=== PATIENT | female | born 1975 | race Caucasian/White ===

== ENCOUNTER 2018-05-17 10:10 | Emergency (ER) | payer SELFPAY ==
[~2018-05-17] VITALS: Ht 154.9 cm; Wt 74.0 kg
[~2018-05-17 10:10] MED LIST: LOPE2 PO; Z.0.NO CURRENT MEDS
[2018-05-17 10:19] VITALS: BP 149/72; PULSE 80; RESP 16; TEMP 98.1; O2SAT 99
[2018-05-17 11:09] LABS: BILIRUBIN, URINE NEG (NEG); BLOOD, URINE SMALL (NEG); GLUCOSE,URINE NEG (NEG); KETONE, URINE NEG (NEG); MUCUS URINE FEW /lpf (OCC); NITRITE,URINE NEG (NEG); SQUAMOUS EPITHELIAL CELL URINE 2 /hpf (0-5); URINE COLOR YELLOW (YELLW/STRAW); URINE LEUKOCYTE ESTERASE NEG (NEG)
[2018-05-17 12:42] LABS: AUTOMATED NEUTROPHIL # 5.9 TH/MM3 (1.8-7.7); BASOPHIL # 0.1 TH/MM3 (0-0.2); BASOPHIL % 1.2 % (0.0-2.0); EOSINOPHIL # 0.1 TH/MM3 (0-0.4); EOSINOPHIL % 1.6 % (0.0-4.0); HEMATOCRIT 35.4 % (35.0-46.0); LYMPH % 19.5 % (9.0-44.0); LYMPHOCYTE # 1.6 TH/MM3 (1.0-4.8); MEAN CELL VOLUME 73.3 FL (80.0-100.0); MEAN CORPUSCULAR HEMOGLOBIN 22.8 PG (27.0-34.0); MEAN CORPUSCULAR HGB CONC 31.1 % (32.0-36.0); MEAN PLATELET VOLUME 8.6 FL (7.0-11.0); MONO % 5.6 % (0.0-8.0); MONOCYTE # 0.5 TH/MM3 (0-0.9); NEUT % 72.1 % (16.0-70.0); PLATELET COUNT 367 TH/MM3 (150-450); RED BLOOD COUNT 4.84 MIL/MM3 (4.00-5.30); RED CELL DISTRIBUTION WIDTH 17.2 % (11.6-17.2); WHITE BLOOD COUNT 8.2 TH/MM3 (4.0-11.0)
[2018-05-17 12:57] LABS: ALBUMIN 3.7 GM/DL (3.4-5.0); AST (GOT) 37 U/L (15-37); BICARBONATE 25.8 MEQ/L (21.0-32.0); BLOOD UREA NITROGEN 9 MG/DL (7-18); CALCIUM 8.8 MG/DL (8.5-10.1); CHLORIDE 105 MEQ/L (98-107); CREATININE 0.59 MG/DL (0.50-1.00); GLOMERULAR FILTRATION RATE 112 ML/MIN (>89); GLUCOSE,RANDOM 100 MG/DL (74-106); SODIUM (NA) 138 MEQ/L (136-145)
[2018-05-17 13:01] LABS: ALKALINE PHOSPHATASE 100 U/L (45-117); ALT (GPT) 57 U/L (10-53); TOTAL BILIRUBIN ADULT 0.6 MG/DL (0.2-1.0); TOTAL PROTEIN 7.7 GM/DL (6.4-8.2)
[2018-05-17 13:28] VITALS: BP 122/59; PULSE 62; RESP 17; O2SAT 100
[2018-05-17] MEDS ORDERED: IOHEXOL 350 MG/ML 10 ML VIAL (for RAD DIAG) IVCONTRAST ONE (14:07)
--- NOTE | 2018-05-17 14:11 | PD ---
HPI Chief Complaint: Intermodal Dispatcher Problem/Complaint Time Seen by Provider: 11:52 Travel History International Travel<30 days: No Contact w/Intl Traveler<30days: No Traveled to known affect area: No History of Present Illness HPI 43-year-old female that presents to the ED for evaluation of abdominal pain on and off for the past 3 months as well as lesions to her vaginal area. Per patient she has not seen anybody for this. Per patient she is been having the pain on and off for the past couple of months but today become more significant. Per patient the pain is in the right side of the abdomen. As well as the left upper abdomen. Currently is more in the right upper quadrant. She still has her gallbladder. She has a history of surgery to her abdomen for a she believes that she had her tubes tied. She does not know for sure. Per patient this was 16 years ago. She states that she does she was but she did not have any nausea or vomiting. She states that the belly pain is what brought her here. She also reports that she has had a rash on her groin area that comes and goes and is itchy. Per patient she believes is related to the longer that she does at her place of work. Per patient is only to the groin. Per patient is itchy and pruritic. Comes and goes and gets better and worse. Currently states that is not as severe as he used to be but she does have bumps per patient and her groin area. Denies any vaginal discharge or bleeding to me. Denies any other medical issues. Per patient her pain currently is 4 out of 10 but worse with touch. PFSH Past Medical History ?: Not : 3 Para: 3 Past Surgical History Section: Yes Social History Alcohol Use: No Tobacco Use: No Substance Use: No Allergies-Medications (Allergen,Severity, Reaction): Coded Allergies: penicillin G (Unverified Allergy, Severe, 05/17/18) Reported Meds & Prescriptions Reported Meds & Active Scripts Active Diclofenac Sodium DR (Diclofenac Sodium) 75 Mg Tabdr 75 Mg PO BID PRN Miconazole Topical 2% Cream 1 Applic TOPICAL BID 14 Days Flagyl (Metronidazole) 500 Mg Tab 500 Mg PO BID 7 Days Review of Systems Except as stated in HPI: all other systems reviewed are Neg Physical Exam Narrative GENERAL: SKIN: Warm and dry. Groin area seen with female nurse present. Patient has what appears to be slightly pruritic rash on her folds of her skin. This appeared to be slightly darker than her skin with some whitish discoloration. Pruritic and not painful. No lymphadenopathy noted. HEAD: Atraumatic. Normocephalic. EYES: Pupils equal and round. No scleral icterus. No injection or drainage. ENT: No nasal bleeding or discharge. Mucous membranes pink and moist. Tongue is midline. No uvula deviation. NECK: Trachea midline. No JVD. CARDIOVASCULAR: Regular rate and rhythm. RESPIRATORY: No accessory muscle use. Clear to auscultation. Breath sounds equal bilaterally. GASTROINTESTINAL: Abdomen soft, tender to palpation in the right upper quadrant , nondistended. Hepatic and splenic margins not palpable. MUSCULOSKELETAL: Extremities without clubbing, cyanosis, or edema. No obvious deformities. Full range of motion of the upper and lower extremities bilaterally. 2+ pulses bilaterally. NEUROLOGICAL: Awake and alert. No obvious cranial nerve deficits. Motor grossly within normal limits. Five out of 5 muscle strength in the arms and legs. Normal speech. PSYCHIATRIC: Appropriate mood and affect; insight and judgment normal. Data Data Last Documented VS Vital Signs Date Time Temp Pulse Resp B/P (MAP) Pulse Ox O2 Delivery O2 Flow Rate FiO2 05/17/18 13:28 62 17 122/59 (80) 100 Room Air 05/17/18 10:19 98.1 Orders Orders Urinalysis - C+S If Indicated (05/17/18 10:23) Ed Urine Pregnancytest Poc (05/17/18 10:23) Complete Blood Count With Diff (05/17/18 11:41) Comprehensive Metabolic Panel (05/17/18 11:41) Lipase (05/17/18 11:41) Lactic Acid (05/17/18 11:41) Iv Access Insert/Monitor (05/17/18 11:41) Ct Abd/Pel W Iv Contrast(Rout) (05/17/18 ) Iohexol 350 Inj (Omnipaque 350 Inj) (05/17/18 14:07) Wet Prep Profile (05/17/18 14:43) Gc And Chlamydia Pcr (05/17/18 14:59) Ed Discharge Order (05/17/18 15:41) Labs Laboratory Tests Test 05/17/18 10:27 05/17/18 12:30 05/17/18 15:18 Urine Color YELLOW Urine Turbidity CLEAR Urine pH 5.0 Urine Specific [place] 1.021 Urine Protein NEG mg/dL Urine Glucose (UA) NEG mg/dL Urine Ketones NEG mg/dL Urine Occult Blood SMALL Urine Nitrite NEG Urine Bilirubin NEG Urine Urobilinogen LESS THAN 2 mg/dL Urine Leukocyte Esterase NEG Urine RBC 1 /hpf Urine WBC LESS THAN 1 /hpf Urine Squamous Epithelial Cells 2 /hpf Urine Mucus FEW /lpf Microscopic Urinalysis Comment CULT NOT INDICATED White Blood Count 8.2 TH/MM3 Red Blood Count 4.84 MIL/MM3 Hemoglobin 11.0 GM/DL Hematocrit 35.4 % Mean Corpuscular Volume 73.3 FL Mean Corpuscular Hemoglobin 22.8 PG Mean Corpuscular Hemoglobin Concent 31.1 % Red Cell Distribution Width 17.2 % Platelet Count 367 TH/MM3 Mean Platelet Volume 8.6 FL Neutrophils (%) (Auto) 72.1 % Lymphocytes (%) (Auto) 19.5 % Monocytes (%) (Auto) 5.6 % Eosinophils (%) (Auto) 1.6 % Basophils (%) (Auto) 1.2 % Neutrophils # (Auto) 5.9 TH/MM3 Lymphocytes # (Auto) 1.6 TH/MM3 Monocytes # (Auto) 0.5 TH/MM3 Eosinophils # (Auto) 0.1 TH/MM3 Basophils # (Auto) 0.1 TH/MM3 CBC Comment DIFF FINAL Differential Comment Blood Urea Nitrogen 9 MG/DL Creatinine 0.59 MG/DL Random Glucose 100 MG/DL Total Protein 7.7 GM/DL Albumin 3.7 GM/DL Calcium Level 8.8 MG/DL Alkaline Phosphatase 100 U/L Aspartate Amino Transf (AST/SGOT) 37 U/L Alanine Aminotransferase (ALT/SGPT) 57 U/L Total Bilirubin 0.6 MG/DL Sodium Level 138 MEQ/L Potassium Level 3.8 MEQ/L Chloride Level 105 MEQ/L Carbon Dioxide Level 25.8 MEQ/L Anion Gap 7 MEQ/L Estimat Glomerular Filtration Rate 112 ML/MIN Lactic Acid Level 1.1 mmol/L Lipase 92 U/L Clue Cells (Wet Prep) PRESENT Vaginal Trichomonas (Wet Prep) NONE SEEN Vaginal Yeast (Wet Prep) NONE SEEN MDM Medical Decision Making Medical Screen Exam Complete: Yes Emergency Medical Condition: Yes Medical Record Reviewed: Yes Interpretation(s) CBC & BMP Diagram 05/17/18 12:30 Total Protein 7.7, Albumin 3.7, Calcium Level 8.8, Alkaline Phosphatase 100, Aspartate Amino Transf (AST/SGOT) 37, Alanine Aminotransferase (ALT/SGPT) 57 H, Total Bilirubin 0.6 UA negative lipase WNL wet prep positive for clue cells Last Impressions Abdomen/Pelvis CT 05/17/18 0000 Signed Impressions: CONCLUSION: 1. 3.0 x 3.6 cm right ovarian cyst. 2. No definite abnormality to explain the patient's left lower quadrant pain i s identified. Differential Diagnosis Tinea infection versus acute abdomen versus cholecystitis versus abdominal pain versus chronic abdominal pain versus hepatitis versus pancreatitis versus normal exam Narrative Course 43-year-old female that presents to the ED for evaluation of rash to her groin and abdominal pain. Patient was properly examined and was found to have signs and symptoms of unclear etiology. She has no primary care doctor and can follow -up outpatient. This time we will do CT as patient does have some reversible pain on the right upper quadrant. We will do blood work. Groin rash appears to be likely tinea pubis. Will treat this with miconazole topical prescription. On regards to the abdominal pain labs and imaging showed negative for acute disease. My attending recommends doing a pelvic exam was the patient has a vaginal discharge she is having abdominal pain. My attending Dr. Locke herself evaluated the patient and performed the pelvic exam herself. please refer to her note. Per her report white discharge noted. Wet prep was sent and did show what appears to be positive for clue cells. Patient likely having bacterial vaginosis. Possible symptoms related to this. Will treat with Flagyl, diclofenac sodium for pain, miconazole topical for the rash. Told to follow closely with PCP. See ED if worsening symptoms. Follow up with PCP. Diagnosis Primary Impression: BV (bacterial vaginosis) Additional Impressions: Ovarian cyst Qualified Codes: N83.201 - Unspecified ovarian cyst, right side Tinea Referrals: [facility] Patient Instructions: General Instructions Additional Instructions: Take medications as prescribed. Follow-up with PCP. No intercourse for 2 weeks until symptoms resolve, especially abdominal pain. See ED if worsening symptoms. Med/Other Pt SpecificInfo: Prescription(s) given Scripts Diclofenac Sodium DR (Diclofenac Sodium DR) 75 Mg Tabdr 75 MG PO BID Y for PAIN SCALE 1 TO 10, #20 TAB 0 Refills Prov: Lakesha Locke MD 05/17/18 Miconazole Topical (Miconazole Topical) 2% Cream 1 APPLIC TOPICAL BID for 14 Days, GM 0 Refills Prov: Lakesha Locke MD 05/17/18 Metronidazole (Flagyl) 500 Mg Tab 500 MG PO BID for Infection for 7 Days, #14 TAB 0 Refills Prov: Laeksha Locke MD 05/17/18 Disposition: 01 DISCHARGE HOME Condition: Stable Ron Goldberg May 17, 2018 14:11
--- NOTE | 2018-05-17 14:31 | RADRPT ---
EXAM DATE: 05/17/2018 2:14 PM EDT AGE/SEX: 43 years / Female INDICATIONS: Left lower quadrant pain for 3 months CLINICAL DATA: This is the patient's initial encounter. Patient reports that signs and symptoms have been present for 1 day and indicates a pain score of 7/10. MEDICAL/SURGICAL HISTORY: None. None. ORAL CONTRAST: No oral contrast ingested. RADIATION DOSE: 8.12 CTDI (mGy) COMPARISON: No prior exams available for comparison. TECHNIQUE: Multiple contiguous axial images were obtained through the abdomen and pelvis following b olus infusion of 93 ml Omnipaque 350 (iohexol) nonionic water-soluble contrast as a single exam dos e. No oral contrast ingested. Using automated exposure control and adjustment of the mA and/or kV ac cording to patient size, radiation dose was kept as low as reasonably achievable to obtain optimal di agnostic quality images. DICOM format image data is available electronically for review and comparis on. FINDINGS: The visualized portion of lung bases clear. The appearance of the liver, spleen, pancreas, adrenal glands and kidneys is within normal limits. The abdominal aorta is normal in caliber. Incidental note is made of a retroaortic left renal vein. N o retroperitoneal adenopathy is seen. The loops of small and large bowel within the upper abdomen are unremarkable. No free air or free flu id is identified. There is no free fluid within the pelvis. No iliac or inguinal adenopathy is present. The examination does demonstrate a 3.0 x 3.6 cm right ovarian cyst. The visualized bony structures demonstrate degenerative changes but are otherwise intact. CONCLUSION: 1. 3.0 x 3.6 cm right ovarian cyst. 2. No definite abnormality to explain the patient's left lower quadrant pain is identified. Electronically signed by: Chase Durbin MD 05/17/2018 2:29 PM EDT
[2018-05-17] MEDS ORDERED: DICL75TA PO (15:40)
[2018-05-17] MEDS ORDERED: METR-1 PO (15:40)
[2018-05-17] MEDS ORDERED: MICO2CRE34 TOPICAL (15:40)
--- NOTE | 2018-05-18 17:21 | PD ---
Physical Exam Narrative Please see mid level note for full history, physical, and disposition. 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 I did the pelvic exam: No vaginal or cervical lesions noted, no adnexa or cervical motion tenderness, + milky white d /c noted Data Data Last Documented VS Vital Signs Date Time Temp Pulse Resp B/P (MAP) Pulse Ox O2 Delivery O2 Flow Rate FiO2 05/17/18 16:37 05/17/18 13:28 62 17 100 Room Air 05/17/18 10:19 98.1 Orders Orders Urinalysis - C+S If Indicated (05/17/18 10:23) Ed Urine Pregnancytest Poc (05/17/18 10:23) Complete Blood Count With Diff (05/17/18 11:41) Comprehensive Metabolic Panel (05/17/18 11:41) Lipase (05/17/18 11:41) Lactic Acid (05/17/18 11:41) Iv Access Insert/Monitor (05/17/18 11:41) Ct Abd/Pel W Iv Contrast(Rout) (05/17/18 ) Iohexol 350 Inj (Omnipaque 350 Inj) (05/17/18 14:07) Wet Prep Profile (05/17/18 14:43) Gc And Chlamydia Pcr (05/17/18 14:59) Ed Discharge Order (05/17/18 15:41) Labs Laboratory Tests Test 05/17/18 10:27 05/17/18 12:30 05/17/18 15:18 Urine Color YELLOW Urine Turbidity CLEAR Urine pH 5.0 Urine Specific [place] 1.021 Urine Protein NEG mg/dL Urine Glucose (UA) NEG mg/dL Urine Ketones NEG mg/dL Urine Occult Blood SMALL Urine Nitrite NEG Urine Bilirubin NEG Urine Urobilinogen LESS THAN 2 mg/dL Urine Leukocyte Esterase NEG Urine RBC 1 /hpf Urine WBC LESS THAN 1 /hpf Urine Squamous Epithelial Cells 2 /hpf Urine Mucus FEW /lpf Microscopic Urinalysis Comment CULT NOT INDICATED White Blood Count 8.2 TH/MM3 Red Blood Count 4.84 MIL/MM3 Hemoglobin 11.0 GM/DL Hematocrit 35.4 % Mean Corpuscular Volume 73.3 FL Mean Corpuscular Hemoglobin 22.8 PG Mean Corpuscular Hemoglobin Concent 31.1 % Red Cell Distribution Width 17.2 % Platelet Count 367 TH/MM3 Mean Platelet Volume 8.6 FL Neutrophils (%) (Auto) 72.1 % Lymphocytes (%) (Auto) 19.5 % Monocytes (%) (Auto) 5.6 % Eosinophils (%) (Auto) 1.6 % Basophils (%) (Auto) 1.2 % Neutrophils # (Auto) 5.9 TH/MM3 Lymphocytes # (Auto) 1.6 TH/MM3 Monocytes # (Auto) 0.5 TH/MM3 Eosinophils # (Auto) 0.1 TH/MM3 Basophils # (Auto) 0.1 TH/MM3 CBC Comment DIFF FINAL Differential Comment Blood Urea Nitrogen 9 MG/DL Creatinine 0.59 MG/DL Random Glucose 100 MG/DL Total Protein 7.7 GM/DL Albumin 3.7 GM/DL Calcium Level 8.8 MG/DL Alkaline Phosphatase 100 U/L Aspartate Amino Transf (AST/SGOT) 37 U/L Alanine Aminotransferase (ALT/SGPT) 57 U/L Total Bilirubin 0.6 MG/DL Sodium Level 138 MEQ/L Potassium Level 3.8 MEQ/L Chloride Level 105 MEQ/L Carbon Dioxide Level 25.8 MEQ/L Anion Gap 7 MEQ/L Estimat Glomerular Filtration Rate 112 ML/MIN Lactic Acid Level 1.1 mmol/L Lipase 92 U/L Clue Cells (Wet Prep) PRESENT Vaginal Trichomonas (Wet Prep) NONE SEEN Vaginal Yeast (Wet Prep) NONE SEEN Chlamydia trachomatis DNA (PCR) NOT DETECTED Neisseria gonorrhoeae DNA (PCR) NOT DETECTED MDM Supervised Visit with MELIDA: Yes Diagnosis Primary Impression: BV (bacterial vaginosis) Additional Impressions: Ovarian cyst Qualified Codes: N83.201 - Unspecified ovarian cyst, right side Tinea Referrals: [facility] Patient Instructions: General Instructions, Bacterial Vaginosis (ED), Ovarian Cyst (ED) Departure Forms: Tests/Procedures Additional Instruction: Take medications as prescribed. Follow-up with PCP. No intercourse for 2 weeks until symptoms resolve, especially abdominal pain. See ED if worsening symptoms. Scripts Diclofenac Sodium DR (Diclofenac Sodium DR) 75 Mg Tabdr 75 MG PO BID Y for PAIN SCALE 1 TO 10, #20 TAB 0 Refills Prov: Lakesha Locke MD 05/17/18 Miconazole Topical (Miconazole Topical) 2% Cream 1 APPLIC TOPICAL BID for 14 Days, GM 0 Refills Prov: Lakesha Locke MD 05/17/18 Metronidazole (Flagyl) 500 Mg Tab 500 MG PO BID for Infection for 7 Days, #14 TAB 0 Refills Prov: Lakesha Locke MD 05/17/18 Disposition: 01 DISCHARGE HOME Condition: Stable Lakesha Locke MD May 18, 2018 17:21
== END 2018-05-17 16:42 | disposition home or self-care (01) ==
LOC: NEPE 10:10
DX: N76.0 Acute vaginitis (principal); B96.89 Other specified bacterial agents as the cause of diseases classified elsewhere; N83.201 Unspecified ovarian cyst, right side; R21 Rash and other nonspecific skin eruption; Z88.0 Allergy status to penicillin
CPT/HCPCS: 74177; 80053; 81001; 83605; 83690; 84703; 85025; 87210; 87491; 87591; 99285; Q9967

== ENCOUNTER 2018-08-10 14:03 | Observation (INO) ==
[2018-08-10 17:04] LABS: Baso # (Auto) 0.1 th/mm3 (0.0-0.2); Baso % (Auto) 1.7 % (0.0-2.0); Eos # (Auto) 0.1 th/mm3 (0.0-0.4); Eos % (Auto) 0.7 % (0.0-4.0); Lymph # (Auto) 1.8 th/mm3 (1.0-4.8); Lymph % (Auto) 22.4 % (9.0-44.0); Mean Corpuscular Hemoglobin 19.4 pg (27.0-34.0); Mean Corpuscular Volume 64.2 fL (80.0-100.0); Mean Platelet Volume 8.4 fL (7.0-11.0); Mono # (Auto) 0.5 th/mm3 (0.0-0.9); Mono % (Auto) 5.8 % (0.0-8.0); Neut # (Auto) 5.6 th/mm3 (1.8-7.7); Neut % (Auto) 69.4 % (16.0-70.0); Platelet Count 441 th/mm3 (150-450); Red Cell Distribution Width 23.5 % (11.6-17.2)
[2018-08-10 17:11] LABS: Mean Corpuscular HGB Conc 30.2 % (32.0-36.0)
[2018-08-10 17:14] LABS: Hematocrit 19.9 % (35.0-46.0)
[2018-08-10 17:31] LABS: Anion Gap 8 meq/L (5-15); Blood Urea Nitrogen 7 mg/dL (7-18); Calcium 8.8 mg/dL (8.5-10.1); Carbon Dioxide 26.2 meq/L (21.0-32.0); Chloride 105 meq/L (98-107); Glomerular Filtration Rate Greater Than 89 mL/min (>89); Glucose,Random 111 mg/dL (74-106); Potassium 3.7 meq/L (3.5-5.1); Sodium 139 meq/L (136-145)
[2018-08-10] MEDS ORDERED: Sod Chloride 0.9% Inj 1,000 ML IV.SIG ONE (17:41)
--- NOTE | 2018-08-10 17:50 | ED ---
HPI General Chief Complaint: Recheck/Abnormal Lab/Rx Stated Complaint: Abnormal test Time Seen by Provider: 08/10/18 17:30 Source: patient, RN notes reviewed and old records reviewed Mode of arrival: ambulatory Limitations: no limitations History of Present Illness HPI narrative: 43-year-old female presents to the emergency department sent by her primary care physician for low hemoglobin. Patient states she has been feeling fatigued for her primary care physician sent her for labs this morning. Her hemoglobin was low and she was instructed to come the emergency department. Patient reports vaginal bleeding for the past 1.5 months. She denies any rectal bleeding. She denies any syncope. No chest pain or shortness of breath. She has no chronic medical problems and takes no prescribed medications. Moderate severity. She denies any abdominal pain. No nausea, vomiting, diarrhea MD complaint: abnormal lab Returns today for: called because of abnormal lab/test Context: called for abnormal lab result Associated symptoms: malaise Related Data Home Medications Medication Instructions Recorded Confirmed No Known Home Medications 08/10/18 08/10/18 Allergies Allergy/AdvReac Type Severity Reaction Status Date / Time penicillin G Allergy Severe Rash, Verified 08/10/18 17:58 Generalized Review of Systems ROS: all other systems reviewed are negative PMFSH Medical History Medical History Ovarian cyst (Acute) Social History Social History Substance History: No History of Abuse Second Hand Smoke Exposure: No Smoking Status: Never smoker How Often Do You Have a Drink Containing Alcohol: Monthly or less Recent Travel in [facility] within the Last 8 Weeks: No Recent Out of Country Travel within the Last 8 Weeks: No Immunization History Tetanus Immunization: Unsure Exam Narrative Exam Narrative: GENERAL: Well-nourished, well-developed female patient, ambulatory. Afebrile. SKIN: Focused skin assessment warm/dry. HEAD: Normocephalic. Atraumatic. EYES: No scleral icterus. No injection or drainage. NECK: Supple, trachea midline. No JVD or lymphadenopathy. CARDIOVASCULAR: Regular rate and rhythm without murmurs, gallops, or rubs. RESPIRATORY: Breath sounds equal bilaterally. No accessory muscle use. Lung sounds are clear to auscultation. GASTROINTESTINAL: Abdomen soft, non-tender, nondistended. MUSCULOSKELETAL: No cyanosis, or edema. BACK: Nontender without obvious deformity. No CVA tenderness. Course Initial Documented Vital Signs Temperature 97.9 F 08/10/18 15:09 Pulse Rate 87 08/10/18 15:09 Respiratory Rate 15 08/10/18 15:09 Blood Pressure 121/63 08/10/18 15:09 Pulse Oximetry 100 08/10/18 15:09 Last Documented Vital Signs Temperature 98.1 F 08/10/18 21:17 Pulse Rate 88 08/10/18 21:17 Respiratory Rate 18 08/10/18 21:17 Blood Pressure 121/66 08/10/18 21:17 Pulse Oximetry 100 08/10/18 21:17 Medical Decision Making MDM Narrative Medical decision making narrative: 43-year-old female presents to the emergency department for anemia, vaginal bleeding. Patient states that she was told by her primary care physician that she had a low hemoglobin need to go the emergency department. CBC shows hemoglobin 6.0, hematocrit 19.9. BMP shows no acute abnormality. UA is negative. Urine test is negative. Type and screen is ordered. Patient is given normal saline 1 L IV bolus. 2 units PRBCs are ordered and pending. Dr. Briscoe accepted admission. Medical Screen Exam Complete: Yes Emergency Medical Condition: Yes Differential Diagnosis Differential Diagnosis: Anemia versus vaginal bleeding versus UTI Lab Data Result diagrams: 08/10/18 16:32 08/10/18 16:32 POC Results POC Urine Results Negative Lab Results 08/10/18 08/10/18 08/10/18 Range/Units 16:22 16:32 16:32 WBC 8.0 (4.0-11.0) th/mm3 RBC 3.10 L (4.00-5.30) mil/mm3 Hgb 6.0 L* (11.6-15.3) gm/dL Hct 19.9 L* (35.0-46.0) % MCV 64.2 L (80.0-100.0) fL MCH 19.4 L (27.0-34.0) pg MCHC 30.2 L (32.0-36.0) % RDW 23.5 H (11.6-17.2) % Plt Count 441 (150-450) th/mm3 MPV 8.4 (7.0-11.0) fL Neut % (Auto) 69.4 (16.0-70.0) % Lymph % (Auto) 22.4 (9.0-44.0) % [place] % (Auto) 5.8 (0.0-8.0) % Eos % (Auto) 0.7 (0.0-4.0) % Baso % (Auto) 1.7 (0.0-2.0) % Neut # (Auto) 5.6 (1.8-7.7) th/mm3 Lymph # (Auto) 1.8 (1.0-4.8) th/mm3 [place] # (Auto) 0.5 (0.0-0.9) th/mm3 Eos # (Auto) 0.1 (0.0-0.4) th/mm3 Baso # (Auto) 0.1 (0.0-0.2) th/mm3 WBC Differential . Differential Comment Auto diff final Sodium 139 (136-145) meq/L Potassium 3.7 (3.5-5.1) meq/L Chloride 105 (98-107) meq/L Carbon Dioxide 26.2 (21.0-32.0) meq/L Anion Gap 8 (5-15) meq/L BUN 7 (7-18) mg/dL Creatinine 0.71 (0.50-1.00) mg/dL Estimated GFR Greater than 89 (>89) mL/min Random Glucose 111 H (74-106) mg/dL Calcium 8.8 (8.5-10.1) mg/dL Urine Color (Yellw/Straw) Urine Clarity (Clear) Urine pH (5.0-8.5) Ur Specific [place] (1.002-1.035) Urine Protein (Neg-Trace) mg/dL Urine Glucose (UA) (Negative) mg/dL Urine Ketones (Negative) mg/dL Urine Occult Blood (Negative) Urine Nitrate (Negative) Urine Bilirubin (Negative) Urine Urobilinogen (Less than 2) mg/dL Ur Leukocyte Esterase (Negative) Urine RBC (0-3) /hpf Urine WBC (0-5) /hpf Urine Mucus (Occasional) /lpf Micro UA Comment Ur Microscopic Review Urine Culture Comments Blood Type Blood Type Recheck Antibody Screen Antibody Identification Anti-D MTS Gel Crossmatch 08/10/18 08/10/18 08/10/18 Range/Units 16:32 16:32 18:56 WBC (4.0-11.0) th/mm3 RBC (4.00-5.30) mil/mm3 Hgb (11.6-15.3) gm/dL Hct (35.0-46.0) % MCV (80.0-100.0) fL MCH (27.0-34.0) pg MCHC (32.0-36.0) % RDW (11.6-17.2) % Plt Count (150-450) th/mm3 MPV (7.0-11.0) fL Neut % (Auto) (16.0-70.0) % Lymph % (Auto) (9.0-44.0) % [place] % (Auto) (0.0-8.0) % Eos % (Auto) (0.0-4.0) % Baso % (Auto) (0.0-2.0) % Neut # (Auto) (1.8-7.7) th/mm3 Lymph # (Auto) (1.0-4.8) th/mm3 [place] # (Auto) (0.0-0.9) th/mm3 Eos # (Auto) (0.0-0.4) th/mm3 Baso # (Auto) (0.0-0.2) th/mm3 WBC Differential Differential Comment Sodium (136-145) meq/L Potassium (3.5-5.1) meq/L Chloride (98-107) meq/L Carbon Dioxide (21.0-32.0) meq/L Anion Gap (5-15) meq/L BUN (7-18) mg/dL Creatinine (0.50-1.00) mg/dL Estimated GFR (>89) mL/min Random Glucose (74-106) mg/dL Calcium (8.5-10.1) mg/dL Urine Color Yellow (Yellw/Straw) Urine Clarity Clear (Clear) Urine pH 6.0 (5.0-8.5) Ur Specific [place] 1.019 (1.002-1.035) Urine Protein Negative (Neg-Trace) mg/dL Urine Glucose (UA) Negative (Negative) mg/dL Urine Ketones Negative (Negative) mg/dL Urine Occult Blood Moderate H (Negative) Urine Nitrate Negative (Negative) Urine Bilirubin Negative (Negative) Urine Urobilinogen Less than 2 (Less than 2) mg/dL Ur Leukocyte Esterase Negative (Negative) Urine RBC 7 H (0-3) /hpf Urine WBC 1 (0-5) /hpf Urine Mucus Few H (Occasional) /lpf Micro UA Comment Culture not ind Ur Microscopic Review Not Reportable Urine Culture Comments Culture not ind Blood Type O Negative Blood Type Recheck Required Antibody Screen Positive H Antibody Identification MTS Gel Crossmatch See Detail Discharge Plan Discharge Disposition Patient Disposition: 30 Still Patient Discharge Details Diagnosis: Symptomatic anemia, Abnormal vaginal bleeding Physicians Team ED Provider: Bashir Canas ED Midlevel Provider: Danii Green Primary Care Provider: Primary Care Debbie Anglin Attending Provider: Anel Briscoe Other Providers: Rohit May Discharge Interventions Interventions: ED Discharge Assessment Last Done: 08/10/18 19:45 Vital Signs Last Done: 08/10/18 17:37 Status ED Status: Left Department Discharge Information Discharge Date/Time: 08/10/18 19:46
[2018-08-10] MEDS ORDERED: Bisacodyl 10 MG Supp RECTAL PRN (18:52)
[2018-08-10] MEDS ORDERED: Acetaminophen 325 MG Tablet PO PRN (18:52)
[2018-08-10 19:25] LABS: Bilirubin,Urine Negative (Negative); Clarity,Urine Clear (Clear); Color,Urine Yellow (Yellw/Straw); Glucose,Urine (UA) Negative (Negative); Leukocyte Esterase,Urine Negative (Negative); Mucus,Urine Few /lpf (Occasional); Nitrite,Urine Negative (Negative); Specific Gravity,Urine 1.019 (1.002-1.035)
[2018-08-10] MEDS: Sod Chloride 0.9% Inj 1,000 ML IV.CONT SCH (20:28)
[2018-08-10] MEDS: Senna/Docusate Sodium 8.6/50 MG Tablet PO SCH (21:26)
--- NOTE | 2018-08-10 21:37 | P.HP ---
History of Present Illness Service: [facility] Primary Care Physician: No Primary Care Physician History of Present Illness: 43-year-old female in the emergency department for the evaluation of low hemoglobin. The patient was sent by her primary care physician after having her labs done this morning. She reports that she has been fatigued for approximately 4 weeks and has been having intermittent headaches. She also reports associated shortness of breath and palpitations with activity. She has had heavy vaginal bleeding times 1 month. She denies any rectal bleeding or hematemesis. No black, tarry stools. No chest pain. No abdominal pain. No nausea/vomiting/diarrhea. No fever/chills. Review of Systems All other systems reviewed negative except as stated in HPI REPLACED BY [facility] - History History Provided By: Patient - Medical History Medical History: Medical History (Last Reviewed 08/10/18 @ 21:35 by Tosin Donald MD) Ovarian cyst - Surgical History Surgical History: Surgical History (Last Updated 08/10/18 @ 21:36 by Tosin Donald MD) History of - Family History Family History: Family History (Last Updated 08/10/18 @ 21:36 by Tosin Donald MD) Other Family history normal - Tobacco History Second Hand Smoke Exposure: No Smoking Status: Never smoker - Alcohol History How Often Do You Have a Drink Containing Alcohol: Monthly or less - Substance Use History Substance History: No History of Abuse - Travel History Recent Travel in the [place] Within the Last 8 Weeks: No Recent Travel Out of the Country Within the Last 8 Weeks: No - Immunization History Tetanus Immunization: Unsure Medications and Allergies Active Medications: Active Medications Acetaminophen (Tylenol) 650 mg PO Q4H PRN PRN Reason: Temp > 100.4 Al Hydroxide/Mg Hydroxide (Milk Of Magnesia Liq) 30 ml PO Q12H PRN PRN Reason: Mild Constipation Bisacodyl (Dulcolax Supp) 10 mg RECTAL DAILY PRN PRN Reason: SEVERE CONSITIPATION Sodium Chloride (Ns Inj) 1,000 mls @ 100 mls/hr IV.CONT .Q10H [facility] Last Infusion: 08/10/18 21:26 Dose: 0 mls/hr Lactulose (Lactulose Liq) 30 ml PO DAILY PRN PRN Reason: SEVERE CONSITIPATION Ondansetron HCl (Zofran Inj) 4 mg IV.PUSH Q6H PRN PRN Reason: NAUSEA OR VOMITING Senna/Docusate Sodium (Bushra-Colace) 1 tab PO BID CARLA Last Admin: 08/10/18 21:26 Dose: Not Given Sennosides (Senokot) 17.2 mg PO Q12H PRN PRN Reason: Moderate Constipation Sodium Chloride (Ns Flush) 2 ml IV.FLUSH PRN PRN PRN Reason: FLUSH AFTER USING IV ACCESS Allergies Allergy/AdvReac Type Severity Reaction Status Date / Time penicillin G Allergy Severe Rash, Verified 08/10/18 17:58 Generalized Home Medications Medication Instructions Recorded Confirmed Type No Known Home Medications 08/10/18 08/10/18 History Exam Vital signs: Vital Signs 08/10/18 15:09 08/10/18 17:37 08/10/18 17:48 Temperature 97.9 F Pulse Rate 87 87 Respiratory Rate 15 18 Blood Pressure 121/63 148/65 H Pulse Oximetry 100 100 100 08/10/18 20:00 08/10/18 21:00 08/10/18 21:17 Temperature 98.1 F 98 F 98.1 F Pulse Rate 83 83 88 Respiratory Rate 17 16 18 Blood Pressure 115/57 L 135/62 121/66 Pulse Oximetry 100 100 100 Intake & Output 08/10/18 08/10/18 08/11/18 06:59 18:59 06:59 Intake Total 1000 / 1000 0 / 0 Balance 1000 / 1000 0 / 0 Weight 72.575 kg Intake: IV 1000 / 1000 NS Inj 1,000 ML @ Wide Open IV. 1000 / 1000 SIG BOLUS ONE Rx#:[id number] Intake (Blood Product) Amt 0 / 0 Rbc As-3 Leukoreduced Unit 0 / 0 [id number] Narrative: Gen.: No acute distress Head: Normocephalic. Atraumatic. EENT: Pupils equal round and reactive to light. Nose without drainage. Airway intact. Throat without injection. Cardiovascular: Regular rate and rhythm. 3/5 ALHAJI. Respiratory: Lungs clear to auscultation bilaterally. No wheezes or rhonchi. Abdomen: Soft, nontender, nondistended. No peritoneal signs. Musculoskeletal: No gross deformities. No edema. Skin: No obvious rashes or erythema. Neuro: Sensory and motor grossly intact. Cranial nerves II through XII grossly intact. Results - Labs CBC & Chem 7: 08/10/18 16:32 08/10/18 16:32 Labs: Laboratory Results - last 24 hr 08/10/18 08/10/18 08/10/18 16:22 16:32 16:32 WBC 8.0 RBC 3.10 L Hgb 6.0 L* Hct 19.9 L* MCV 64.2 L MCH 19.4 L MCHC 30.2 L RDW 23.5 H Plt Count 441 MPV 8.4 Neut % (Auto) 69.4 Lymph % (Auto) 22.4 [place] % (Auto) 5.8 Eos % (Auto) 0.7 Baso % (Auto) 1.7 Neut # (Auto) 5.6 Lymph # (Auto) 1.8 [place] # (Auto) 0.5 Eos # (Auto) 0.1 Baso # (Auto) 0.1 WBC Differential . Differential Comment Auto diff final Sodium 139 Potassium 3.7 Chloride 105 Carbon Dioxide 26.2 Anion Gap 8 BUN 7 Creatinine 0.71 Estimated GFR Greater than 89 Random Glucose 111 H Calcium 8.8 Urine Color Urine Clarity Urine pH Ur Specific [place] Urine Protein Urine Glucose (UA) Urine Ketones Urine Occult Blood Urine Nitrate Urine Bilirubin Urine Urobilinogen Ur Leukocyte Esterase Urine RBC Urine WBC Urine Mucus Micro UA Comment Ur Microscopic Review Urine Culture Comments Blood Type Blood Type Recheck Antibody Screen Antibody Identification Anti-D MTS Gel Crossmatch 08/10/18 08/10/18 08/10/18 16:32 16:32 18:56 WBC RBC Hgb Hct MCV MCH MCHC RDW Plt Count MPV Neut % (Auto) Lymph % (Auto) [place] % (Auto) Eos % (Auto) Baso % (Auto) Neut # (Auto) Lymph # (Auto) [place] # (Auto) Eos # (Auto) Baso # (Auto) WBC Differential Differential Comment Sodium Potassium Chloride Carbon Dioxide Anion Gap BUN Creatinine Estimated GFR Random Glucose Calcium Urine Color Yellow Urine Clarity Clear Urine pH 6.0 Ur Specific [place] 1.019 Urine Protein Negative Urine Glucose (UA) Negative Urine Ketones Negative Urine Occult Blood Moderate H Urine Nitrate Negative Urine Bilirubin Negative Urine Urobilinogen Less than 2 Ur Leukocyte Esterase Negative Urine RBC 7 H Urine WBC 1 Urine Mucus Few H Micro UA Comment Culture not ind Ur Microscopic Review Not Reportable Urine Culture Comments Culture not ind Blood Type O Negative Blood Type Recheck Required Antibody Screen Positive H Antibody Identification MTS Gel Crossmatch See Detail Caprini VTE Risk Assessment Caprini VTE Risk Assessment: No/Low Risk (score <= 1) Caprini Risk Assessment Model: Point Value = 1 Point Value = 2 Point Value = 3 Point Value = 5 Age 41-60 Minor surgery BMI > 25 kg/m2 Swollen legs Varicose veins or History of unexplained or recurrent spontaneous Oral contraceptives or hormone replacement Sepsis (< 1 month) Serious lung disease, including pneumonia (< 1 month) Abnormal pulmonary function Acute myocardial infarction Congestive heart failure (< 1 month) History of inflammatory bowel disease Medical patient at bed rest Age 61-74 Arthroscopic surgery Major open surgery (> 45 min) Laparoscopic surgery (> 45 min) Malignancy Confined to bed (> 72 hours) Immobilizing plaster cast Central venous access Age >= 75 History of VTE Family history of VTE Factor V Leiden Prothrombin [id number] Lupus anticoagulant Anticardiolipin antibodies Elevated serum homocysteine Heparin-induced thrombocytopenia Other congenital or acquired thrombophilia Stroke (< 1 month) Elective arthroplasty Hip, pelvis, or leg fracture Acute spinal cord injury (< 1 month) Prophylaxis Regimen: Total Risk Factor Score Risk Level Prophylaxis Regimen 0-1 Low Early ambulation 2 Moderate Order ONE of the following: *Sequential Compression Device (SCD) *Heparin 5000 units SQ BID 3-4 Higher Order ONE of the following medications: *Heparin 5000 units SQ TID *Enoxaparin/Lovenox 40 mg SQ daily (WT < 150 kg, CrCl > 30 mL/min) *Enoxaparin/Lovenox 30 mg SQ daily (WT < 150 kg, CrCl > 10-29 mL/min) *Enoxaparin/Lovenox 30 mg SQ BID (WT < 150 kg, CrCl > 30 mL/min) AND/OR *Sequential Compression Device (SCD) 5 or more Highest Order ONE of the following medications: *Heparin 5000 units SQ TID (Preferred with Epidurals) *Enoxaparin/Lovenox 40 mg SQ daily (WT < 150 kg, CrCl > 30 mL/min) *Enoxaparin/Lovenox 30 mg SQ daily (WT < 150 kg, CrCl > 10-29 mL/min) *Enoxaparin/Lovenox 30 mg SQ BID (WT < 150 kg, CrCl > 30 mL/min) AND *Sequential Compression Device (SCD) Assessment and Plan - Plan Assessment/plan: 1. Symptomatic anemia Hemoglobin 6.0 Transfuse 2 units packed red blood cells Likely secondary to vaginal bleeding FIELD OPERATIONS TECHNICIAN consulted, appreciate recommendations FEN Regular diet Electrolytes: Monitor and replete as needed
--- NOTE | 2018-08-10 23:25 | P.CONOB ---
History of Present Illness Primary Care Physician: No Primary Care Physician Dr. Donald Chief Complaint: Abnormal vaginal bleeding for a month and a half History of Present Illness: This patient is a 43-year-old previous 3 and tubal ligation who presents complaining of a month and a half vaginal bleeding after 3 months of amenorrhea. Patient states she usually has regular periods but occasionally will skip 1 and then recently skipped 3 months and then started bleeding and it was very heavy and clotty and bright red and very heavy compared to what she usually notices. This bleeding is continued for a month and a half and now her hemoglobin is 6 Para: 3 (3 C-sections) : 3 Review of Systems Constitutional: Reports lack of energy, Reports weakness, Denies anorexia, Denies body ache(s), Denies chills, Denies daytime sleepiness, Denies excessive sweating, Denies fatigue, Denies fever(s), Denies headache(s), Denies increased appetite, Denies malaise, Denies night sweats, Denies weight gain, Denies weight loss, Denies other Cardiovascular: Denies chest pain, Denies chest pain at rest, Denies chest pain with activity, Denies excessive sweating, Denies fainting, Denies fast heart rate, Denies foot swelling, Denies generalized swelling, Denies irregular heart rhythm, Denies leg pain with activity, Denies leg sores, Denies leg swelling, Denies lightheadedness, Denies radiating jaw, neck or arm pain, Denies rapid, pounding, or irregular heartbeat, Denies shortness of breath, Denies shortness of breath with activity, Denies shortness of breath when lying down, Denies shortness of breath causing sudden awakening, Denies slow heart rate, Denies other Respiratory: Denies change in phlegm color, Denies chest congestion, Denies cough, Denies coughing up blood, Denies excessive phlegm production, Denies pain on inspiration, Denies pain with cough, Denies shortness of breath, Denies shortness of breath with activity, Denies snoring, Denies stridor, Denies wheezing, Denies other Gastrointestinal: Denies abdominal pain, Denies belching, Denies black, tarry stools, Denies bloating, Denies bright, red blood in stools, Denies change in bowel habits, Denies constant urge to pass stool, Denies change in stools, Denies coffee ground vomit, Denies constipation, Denies cramping, Denies difficulty swallowing, Denies excessive passing of gas, Denies feeling full early, Denies heartburn, Denies incontinent of stools, Denies loose stools, Denies nausea, Denies pain with swallowing, Denies vomiting, Denies vomiting blood, Denies other Genitourinary: Reports abnormal vaginal bleeding, Denies abnormal periods, Denies absent period, Denies bleeding between periods, Denies blood in urine, Denies difficulty starting urination, Denies difficulty urinating, Denies dribbling after urination, Denies frequent nighttime urination, Denies genital itching, Denies genital lesions, Denies heavy periods, Denies hot flashes, Denies light periods, Denies nipple discharge, Denies painful intercourse, Denies painful periods, Denies painful urination, Denies pelvic pain, Denies prolapse symptoms, Denies sexual problems, Denies side pain, Denies urinary incontinence, Denies urinary urgency, Denies vaginal discharge, Denies vaginal dryness, Denies vaginal odor, Denies vaginal itching, Denies other Musculoskeletal: Denies abnormal walking, Denies back pain, Denies body aches, Denies decreased muscle mass, Denies deformity, Denies joint pain, Denies joint swelling, Denies limited joint movement, Denies loss of height, Denies muscle cramps, Denies muscle weakness, Denies neck pain, Denies numbness, Denies radiating pain into limb, Denies stiffness, Denies tingling, Denies other Neurologic: Denies abnormal hearing, Denies abnormal movements, Denies abnormal speech, Denies abnormal walking, Denies behavioral changes, Denies burning sensations, Denies confusion, Denies dizziness, Denies fainting, Denies frequent falls, Denies headache(s), Denies lack of coordination, Denies localized weakness, Denies loss of vision, Denies memory loss, Denies numbness, Denies other visual disturbances, Denies radiating pain, Denies restless legs, Denies convulsions, Denies seizure-like activity, Denies sensory deficit, Denies tingling, Denies tingling/numbness/burning sensations, Denies tremor(s), Denies unsteadiness, Denies weakness, Denies other PMFSH - History History Provided By: Patient - Medical History Medical History: Medical History (Last Reviewed 08/10/18 @ 21:35 by Tosin Donald MD) Ovarian cyst - Surgical History Surgical History: Surgical History (Last Updated 08/10/18 @ 23:15 by Rohit May MD) History of History of bilateral tubal ligation - Family History Family History: Family History (Last Updated 08/10/18 @ 21:36 by Tosin Donald MD) Other Family history normal - Tobacco History Second Hand Smoke Exposure: No Tobacco Use In Past 30 Days: No Smoking Status: Never smoker - Alcohol History How Often Do You Have a Drink Containing Alcohol: Monthly or less - Substance Use History Substance History: No History of Abuse - Travel History History of Recent Travel: No Recent Travel in the [place] Within the Last 8 Weeks: No Recent Travel Out of the Country Within the Last 8 Weeks: No - Immunization History Tetanus Immunization: Unsure Medications and Allergies Active Medications: Active Medications Acetaminophen (Tylenol) 650 mg PO Q4H PRN PRN Reason: Temp > 100.4 Al Hydroxide/Mg Hydroxide (Milk Of Magnesia Liq) 30 ml PO Q12H PRN PRN Reason: Mild Constipation Bisacodyl (Dulcolax Supp) 10 mg RECTAL DAILY PRN PRN Reason: SEVERE CONSITIPATION Sodium Chloride (Ns Inj) 1,000 mls @ 100 mls/hr IV.CONT .Q10H [facility] Last Infusion: 08/10/18 21:26 Dose: 0 mls/hr Lactulose (Lactulose Liq) 30 ml PO DAILY PRN PRN Reason: SEVERE CONSITIPATION Ondansetron HCl (Zofran Inj) 4 mg IV.PUSH Q6H PRN PRN Reason: NAUSEA OR VOMITING Senna/Docusate Sodium (Bushra-Colace) 1 tab PO BID [facility] Last Admin: 08/10/18 21:26 Dose: Not Given Sennosides (Senokot) 17.2 mg PO Q12H PRN PRN Reason: Moderate Constipation Sodium Chloride (Ns Flush) 2 ml IV.FLUSH PRN PRN PRN Reason: FLUSH AFTER USING IV ACCESS Allergies Allergy/AdvReac Type Severity Reaction Status Date / Time penicillin G Allergy Severe Rash, Verified 08/10/18 17:58 Generalized Home Medications Medication Instructions Recorded Confirmed Type No Known Home Medications 08/10/18 08/10/18 History Exam Vital signs: Vital Signs 08/10/18 15:09 08/10/18 17:37 08/10/18 17:48 Temperature 97.9 F Pulse Rate 87 87 Respiratory Rate 15 18 Blood Pressure 121/63 148/65 H Pulse Oximetry 100 100 100 08/10/18 20:00 08/10/18 21:00 08/10/18 21:17 Temperature 98.1 F 98 F 98.1 F Pulse Rate 83 83 88 Respiratory Rate 17 16 18 Blood Pressure 115/57 L 135/62 121/66 Pulse Oximetry 100 100 100 Intake & Output 08/10/18 08/10/18 08/11/18 06:59 18:59 06:59 Intake Total 1000 / 1000 0 / 0 Balance 1000 / 1000 0 / 0 Weight 72.575 kg Intake: IV 1000 / 1000 NS Inj 1,000 ML @ Wide Open IV. 1000 / 1000 SIG BOLUS ONE Rx#:[id number] Intake (Blood Product) Amt 0 / 0 Rbc As-3 Leukoreduced Unit 0 / 0 [id number] Other: Date of Last Bowel Movement 08/10/18 - Constitutional no acute distress - Routine HEENT Exam Head: Present: normocephalic, atraumatic Eye: Present: PERRL - Routine Respiratory Exam Present: CTA bilaterally - Routine Cardiovascular Exam Present: RRR - Routine Abdominal Exam Present: soft Comments: Abdomen is soft no masses noted no pain noted to palpation she is a large vertical scar from previous C-sections, normal bowel sounds no organomegaly - Routine Exam Comments: Normal external genitalia noted vaginal exam revealed no blood on the examining glove cervix palpates is normal with no cervical motion tenderness the uterus is mid position anteflexed normal size with no adnexal masses palpable and no pain to palpation - Routine Skin Exam Present: intact - Routine Neurological Exam Present: alert, oriented X3, CN II-XII intact Results - Labs CBC & Chem 7: 08/10/18 16:32 08/10/18 16:32 Labs: Laboratory Results - last 24 hr 08/10/18 08/10/18 08/10/18 16:22 16:32 16:32 WBC 8.0 RBC 3.10 L Hgb 6.0 L* Hct 19.9 L* MCV 64.2 L MCH 19.4 L MCHC 30.2 L RDW 23.5 H Plt Count 441 MPV 8.4 Neut % (Auto) 69.4 Lymph % (Auto) 22.4 [place] % (Auto) 5.8 Eos % (Auto) 0.7 Baso % (Auto) 1.7 Neut # (Auto) 5.6 Lymph # (Auto) 1.8 [place] # (Auto) 0.5 Eos # (Auto) 0.1 Baso # (Auto) 0.1 WBC Differential . Differential Comment Auto diff final Sodium 139 Potassium 3.7 Chloride 105 Carbon Dioxide 26.2 Anion Gap 8 BUN 7 Creatinine 0.71 Estimated GFR Greater than 89 Random Glucose 111 H Calcium 8.8 Urine Color Urine Clarity Urine pH Ur Specific [place] Urine Protein Urine Glucose (UA) Urine Ketones Urine Occult Blood Urine Nitrate Urine Bilirubin Urine Urobilinogen Ur Leukocyte Esterase Urine RBC Urine WBC Urine Mucus Micro UA Comment Ur Microscopic Review Urine Culture Comments Blood Type Blood Type Recheck Antibody Screen Antibody Identification Anti-D MTS Gel Crossmatch 08/10/18 08/10/18 08/10/18 16:32 16:32 18:56 WBC RBC Hgb Hct MCV MCH MCHC RDW Plt Count MPV Neut % (Auto) Lymph % (Auto) [place] % (Auto) Eos % (Auto) Baso % (Auto) Neut # (Auto) Lymph # (Auto) [place] # (Auto) Eos # (Auto) Baso # (Auto) WBC Differential Differential Comment Sodium Potassium Chloride Carbon Dioxide Anion Gap BUN Creatinine Estimated GFR Random Glucose Calcium Urine Color Yellow Urine Clarity Clear Urine pH 6.0 Ur Specific [place] 1.019 Urine Protein Negative Urine Glucose (UA) Negative Urine Ketones Negative Urine Occult Blood Moderate H Urine Nitrate Negative Urine Bilirubin Negative Urine Urobilinogen Less than 2 Ur Leukocyte Esterase Negative Urine RBC 7 H Urine WBC 1 Urine Mucus Few H Micro UA Comment Culture not ind Ur Microscopic Review Not Reportable Urine Culture Comments Culture not ind Blood Type O Negative Blood Type Recheck Required Antibody Screen Positive H Antibody Identification MTS Gel Crossmatch See Detail Negative test - Imaging CT scan shows normal size uterus small amount of fluid in the a 3 x 3 cm right ovarian cyst simple Assessment and Plan - Diagnosis (1) Dysfunctional uterine hemorrhage Code(s): N93.8 - Other specified abnormal uterine and vaginal bleeding Status : Acute (2) Right ovarian cyst Code(s): N83.201 - Unspecified ovarian cyst, right side Status: Acute (3) Anemia Code(s): D64.9 - Anemia, unspecified Status: Acute - Plan This patient's bleeding is quite likely related to anovulatory heavy bleeding after 3 months of amenorrhea, she was not ovulating during the 3 months and at some point the uterus just developed as much endometrium is a good hold and she started bleeding and was with no regulatory system in place it just bled until finally it bled itself out. When her bleeding abnormality started she went to the [facility] and got a pack of control pills and she took them and when she was taking the pills she said she did not bleed but when the pills ran out she had no more pills she started bleeding as you would expect but she does kept on bleeding because she did not have any more pills to start back. I recommend that she have a pelvic ultrasound to measure endometrial stripe, better assess the right ovarian cyst which is very likely physiologic and any other pelvic structures. She should be cycled on at least 3 pill packs to have some type of regular scheduled controlled bleeding episode during that time and I explained to her that this first pill pack given she should take the first day will be 2 pills and then after that 1 pill a day and that she should continue the pill pack not missing any pills and then go to the next pill pack and then the next without missing days or stopping because she is likely to breakthrough bleeding, prescription for Ortho-[facility] was left on the chart. She is to follow-up with clinic she mentioned prior for further care and I told her that basically if she wants to stay on control pills because it helps control her cycles so well and she feels better on the she can continue them for years actually, she is not a smoker she has no medical problems unless she developed some type of embolic problem or something that would preclude that then she can take pills a long time (3) Anemia Qualifiers: Anemia type: iron deficiency Iron deficiency anemia type: chronic blood loss Qualified Code(s): D50.0 - Iron deficiency anemia secondary to blood loss ( chronic)
--- NOTE | 2018-08-11 00:03 | US ---
EXAM DATE: 08/10/2018 11:39 PM EDT AGE/SEX: 43 years / Female INDICATIONS: Abnormal bleeding. CLINICAL DATA: This is the patient's initial encounter. Patient reports that signs and symptoms have been present for 2 months and indicates a pain score of 0/10. MEDICAL/SURGICAL HISTORY: . Ovarian cysts. section. Tubal ligation. COMPARISON: No prior exams available for comparison. MEASUREMENTS: Uterus:__5.5 x 5.5 x 4.8 cm Endometrial Stripe:__5 mm Right Ovary:__ 3.1 x 2.4 x 2.0 cm Left Ovary:__ Not visualized. cm FINDINGS: Uterus: The myometrium has homogeneous echotexture without mass. Endometrial Stripe: Endometrial fluid is visualized. Right Ovary: Ovary contains no mass or significant cystic lesion. Left Ovary: Not visualized. Fluid: Trace free fluid. Other: None. CONCLUSION: 1. Trace fluid in the endometrial canal. Small follicular cysts in the right ovary. Left ovary not v isualized. Trace free fluid in the cul-de-sac. Electronically signed by: Cayden Becker MD 08/11/2018 12:01 AM EDT
[2018-08-11] MEDS: Sod Chloride 0.9% Inj 1,000 ML IV.CONT SCH (04:43)
[2018-08-11 05:37] LABS: Baso # (Auto) 0.1 th/mm3 (0.0-0.2); Baso % (Auto) 1.4 % (0.0-2.0); Eos # (Auto) 0.1 th/mm3 (0.0-0.4); Eos % (Auto) 1.2 % (0.0-4.0); Hematocrit 24.1 % (35.0-46.0); Hemoglobin 7.5 gm/dL (11.6-15.3); Lymph # (Auto) 2.2 th/mm3 (1.0-4.8); Lymph % (Auto) 25.6 % (9.0-44.0); Mean Corpuscular HGB Conc 31.3 % (32.0-36.0); Mean Corpuscular Volume 70.3 fL (80.0-100.0); Mean Platelet Volume 8.1 fL (7.0-11.0); Mono # (Auto) 0.4 th/mm3 (0.0-0.9); Neut # (Auto) 5.7 th/mm3 (1.8-7.7); Neut % (Auto) 66.8 % (16.0-70.0); Platelet Count 355 th/mm3 (150-450); Red Blood Count 3.43 mil/mm3 (4.00-5.30); Red Cell Distribution Width 25.4 % (11.6-17.2); White Blood Count 8.5 th/mm3 (4.0-11.0)
[2018-08-11 05:53] LABS: Activated Partial Thrombo Time 20.9 sec (24.3-30.1); Prothrombin Time 9.9 sec (9.8-11.6)
[2018-08-11 06:00] LABS: Anion Gap 10 meq/L (5-15); Blood Urea Nitrogen 11 mg/dL (7-18); Calcium 7.9 mg/dL (8.5-10.1); Carbon Dioxide 26.1 meq/L (21.0-32.0); Chloride 108 meq/L (98-107); Glomerular Filtration Rate Greater Than 89 mL/min (>89); Glucose,Random 115 mg/dL (74-106); Potassium 3.7 meq/L (3.5-5.1); Sodium 144 meq/L (136-145)
[2018-08-11 06:30] LABS: Platelet Estimate Normal (Normal); Platelet Morphology Normal (Normal)
[2018-08-11 06:31] LABS: Ovalocytes 1+
[2018-08-11 06:32] LABS: Burr Cells 1+; Helmet Cells Occ
--- NOTE | 2018-08-11 09:33 | P.OBGPN ---
Patient's ultrasound shows small endometrial stripe of 4.4 mm, small follicular cysts seen on the ovaries Patient may be discharged from [employer] standpoint on oral contraceptives for cycle control ,prescription in the chart Patient states she has a clinic [facility]
[2018-08-11] MEDS: Senna/Docusate Sodium 8.6/50 MG Tablet PO SCH (09:53)
--- NOTE | 2018-08-11 11:13 | P.PN ---
Subjective Interval history: Nursing denies any deterioration since last night. Patient denies any abdominal pain nausea vomiting. Doing well. Physical Exam Vital signs: Vital Signs 08/10/18 15:09 08/10/18 17:37 08/10/18 17:48 Temperature 97.9 F Pulse Rate 87 87 Respiratory Rate 15 18 Blood Pressure 121/63 148/65 H Pulse Oximetry 100 100 100 08/10/18 20:00 08/10/18 21:00 08/10/18 21:17 Temperature 98.1 F 98 F 98.1 F Pulse Rate 83 83 88 Respiratory Rate 17 16 18 Blood Pressure 115/57 L 135/62 121/66 Pulse Oximetry 100 100 100 08/10/18 23:37 08/11/18 00:44 08/11/18 01:04 Temperature 97.9 F 97.4 F L 98.1 F Pulse Rate 85 79 76 Respiratory Rate 16 17 18 Blood Pressure 145/74 H 123/63 137/67 Pulse Oximetry 100 100 100 08/11/18 04:00 08/11/18 07:40 Temperature 97.5 F L 98.7 F Pulse Rate 84 86 Respiratory Rate 17 18 Blood Pressure 120/69 128/60 Pulse Oximetry 99 100 Intake & Output 08/10/18 08/11/18 08/11/18 18:59 06:59 18:59 Intake Total 1000 / 1000 800 / 800 Output Total 200 / 200 Balance 1000 / 1000 600 / 600 Weight 72.575 kg 77.111 kg Intake: IV 1000 / 1000 NS Inj 1,000 ML @ Wide Open IV. 1000 / 1000 SIG BOLUS ONE Rx#:[id number] Intake (Blood Product) Amt 800 / 800 Rbc As-3 Leukoreduced Unit 400 / 400 [id number] Rbc As-3 Leukoreduced Unit 400 / 400 [id number] Output: Urine 200 / 200 Other: Date of Last Bowel Movement 08/10/18 Weight On Admission 77.111 kg Narrative: Abdomen soft, nontender, nondistended No acute distress Results - Labs CBC & Chem 7: 08/11/18 05:16 08/11/18 05:16 Laboratory Results - last 24 hr 08/10/18 08/10/18 08/10/18 16:22 16:32 16:32 WBC 8.0 RBC 3.10 L Hgb 6.0 L* Hct 19.9 L* MCV 64.2 L MCH 19.4 L MCHC 30.2 L RDW 23.5 H Plt Count 441 MPV 8.4 Prelim Diff (Auto) Neut % (Auto) 69.4 Lymph % (Auto) 22.4 [place] % (Auto) 5.8 Eos % (Auto) 0.7 Baso % (Auto) 1.7 Neut # (Auto) 5.6 Lymph # (Auto) 1.8 [place] # (Auto) 0.5 Eos # (Auto) 0.1 Baso # (Auto) 0.1 WBC Differential . Diff Scan Differential Comment Auto diff final Platelet Estimate Platelet Morphology Ovalocytes Helmet Cells [place] Cells Keratocytes PT INR APTT Sodium 139 Potassium 3.7 Chloride 105 Carbon Dioxide 26.2 Anion Gap 8 BUN 7 Creatinine 0.71 Estimated GFR Greater than 89 Random Glucose 111 H Calcium 8.8 Urine Color Urine Clarity Urine pH Ur Specific [place] Urine Protein Urine Glucose (UA) Urine Ketones Urine Occult Blood Urine Nitrate Urine Bilirubin Urine Urobilinogen Ur Leukocyte Esterase Urine RBC Urine WBC Urine Mucus Micro UA Comment Ur Microscopic Review Urine Culture Comments Blood Type Blood Type Recheck Antibody Screen Antibody Identification Anti-D MTS Gel Crossmatch 08/10/18 08/10/18 08/10/18 16:32 16:32 18:56 WBC RBC Hgb Hct MCV MCH MCHC RDW Plt Count MPV Prelim Diff (Auto) Neut % (Auto) Lymph % (Auto) [place] % (Auto) Eos % (Auto) Baso % (Auto) Neut # (Auto) Lymph # (Auto) [place] # (Auto) Eos # (Auto) Baso # (Auto) WBC Differential Diff Scan Differential Comment Platelet Estimate Platelet Morphology Ovalocytes Helmet Cells [place] Cells Keratocytes PT INR APTT Sodium Potassium Chloride Carbon Dioxide Anion Gap BUN Creatinine Estimated GFR Random Glucose Calcium Urine Color Yellow Urine Clarity Clear Urine pH 6.0 Ur Specific [place] 1.019 Urine Protein Negative Urine Glucose (UA) Negative Urine Ketones Negative Urine Occult Blood Moderate H Urine Nitrate Negative Urine Bilirubin Negative Urine Urobilinogen Less than 2 Ur Leukocyte Esterase Negative Urine RBC 7 H Urine WBC 1 Urine Mucus Few H Micro UA Comment Culture not ind Ur Microscopic Review Not Reportable Urine Culture Comments Culture not ind Blood Type O Negative Blood Type Recheck Required Antibody Screen Positive H Antibody Identification MTS Gel Crossmatch See Detail 08/11/18 08/11/18 08/11/18 05:16 05:16 05:16 WBC 8.5 RBC 3.43 L Hgb 7.5 L Hct 24.1 L MCV 70.3 L D MCH 22.0 L MCHC 31.3 L RDW 25.4 H Plt Count 355 MPV 8.1 Prelim Diff (Auto) Slide review pending Neut % (Auto) 66.8 Lymph % (Auto) 25.6 [place] % (Auto) 5.0 Eos % (Auto) 1.2 Baso % (Auto) 1.4 Neut # (Auto) 5.7 Lymph # (Auto) 2.2 [place] # (Auto) 0.4 Eos # (Auto) 0.1 Baso # (Auto) 0.1 WBC Differential . Diff Scan Auto diff confirmed Differential Comment . Platelet Estimate Normal Platelet Morphology Normal Ovalocytes 1+ H Helmet Cells Occ H [place] Cells 1+ H Keratocytes Occ H PT 9.9 INR 1.0 APTT 20.9 L Sodium 144 Potassium 3.7 Chloride 108 H Carbon Dioxide 26.1 Anion Gap 10 BUN 11 Creatinine 0.71 Estimated GFR Greater than 89 Random Glucose 115 H Calcium 7.9 L D Urine Color Urine Clarity Urine pH Ur Specific [place] Urine Protein Urine Glucose (UA) Urine Ketones Urine Occult Blood Urine Nitrate Urine Bilirubin Urine Urobilinogen Ur Leukocyte Esterase Urine RBC Urine WBC Urine Mucus Micro UA Comment Ur Microscopic Review Urine Culture Comments Blood Type Blood Type Recheck Antibody Screen Antibody Identification MTS Gel Crossmatch - Imaging Impressions Pelvis Ultrasound 08/10/18 00:00 CONCLUSION: 1. Trace fluid in the endometrial canal. Small follicular cysts in the right ovary. Left ovary not visualized. Trace free fluid in the cul-de-sac. Assessment and Plan - Plan Hemoglobin levels are holding steady after transfusion. No acute vaginal bleeding overnight. Per [facility] [facility] recommendations, prescription for Ortho-[facility] in chart, patient follow-up with [facility]. Patient has met maximal benefit from hospitalization and is clinically stable for discharge.
== END 2018-08-11 11:21 | disposition home or self-care (01) ==
LOC: NEPC 14:03 → NEDA 14:03 → NEPHCDU 20:06
PROVIDERS: ADMIT Hospitalist; ATTEND Hospitalist